=== PATIENT | female | born 1955 | race African-American/Black ===

== ENCOUNTER → 2017-02-26 13:08 | Outpatient (CLI) | payer OTHER | END | disposition home or self-care (01) | LOC: D.RAD 13:00 | DX: Z02.71 Encounter for disability determination (principal) ==

== ENCOUNTER 2021-02-12 15:30 | Outpatient (CLI) | payer MEDICARE | END 2021-02-12 23:59 | disposition home or self-care (01) | LOC: D.MAMMO 15:30 | PROVIDERS: ATTEND Family Medicine | DX: Z12.31 Encounter for screening mammogram for malignant neoplasm of breast (principal) ==